=== PATIENT | male | born 1980 | race Hispanic/Latino ===

== ENCOUNTER 2017-03-29 11:07 | Emergency (ER) | payer OTHER ==
[2017-03-29] MEDS ORDERED: ATIVAN IV ONE (11:15)
[2017-03-29] MEDS ORDERED: KEPPRA 1,000 MG/NS 0.75% 100ML 1,000 MG/100 ML BAG IV ONE (11:27)
[2017-03-29] MEDS ORDERED: KEPPRA 1,000 MG in D5W 100 ML IV ONE (11:38)
[2017-03-29] MEDS ORDERED: NACL 0.9% 1000 ML 1,000 ML IV ONE (11:41)
--- NOTE | 2017-03-29 11:49 | Emergency Department Report ---
ED General Adult HPI - General Chief complaint: Seizure Stated complaint: SEIZURE Time Seen by Provider: 03/29/17 11:34 Source: patient, EMS (ems notes not available at time of chart dictation), RN notes reviewed, old records reviewed Mode of arrival: Stretcher Limitations: Altered Mental Status, Other (patient initially altered and postictal, after prolonged period of observation in the emergency department, becomes lucid, and conversational and cogent.) - History of Present Illness Initial comments: This is a 36-year-old male. He is previously unknown to me. Has a past medical history of seizure disorder. Patient indicates he takes Depakote, 500 mg 3 times daily. He indicates that he is poorly compliant with this medication. The patient was brought to the hospital by EMS for seizure. As per triage nurse documentation, patient initially altered, had a seizure while in triage. Patient was given Keppra and Ativan. The patient had unremarkable laboratory studies, negative CT scan of the brain and cervical spine, negative chest x-ray. The patient was observed in the ER for a prolonged period of time. Eventually, the patient became conversational and lucid. He indicates that he is poorly compliant with his antiepileptic drug therapy, but denies severe headache, neck pain, chest pain, abdominal pain , shortness of breath. The patient indicates that he is not driving motor vehicles. He denies toxic drug ingestions. -: unknown Severity scale (0 -10): 0 Consistency: now resolved Improves with: medication Associated Symptoms: confusion (now resolved) - Related Data Previous Rx's Medication Instructions Recorded Last Taken Type Divalproex Dr [Depakote Dr] 500 mg PO TID #90 tablet 08/29/15 Unknown Rx Valproic Acid 500 mg PO TID #180 capsule 03/29/17 Unknown Rx Allergies Allergy/AdvReac Type Severity Reaction Status Date / Time No Known Allergies Allergy Verified 08/29/15 11:16 ED Review of Systems ROS: Stated complaint: SEIZURE Other details as noted in HPI Comment: Unobtainable due to pts medical conditions Constitutional: other (patient initially altered, however afterwards, denies fevers, chills, weakness). denies: fever, malaise, weakness Eyes: denies: vision change ENT: denies: epistaxis Respiratory: denies: cough Cardiovascular: denies: palpitations Gastrointestinal: denies: nausea Genitourinary: as per HPI. denies: dysuria Musculoskeletal: denies: back pain Neurological: headache, confusion (now resolved) Psychiatric: denies: homicidal thoughts, suicidal thoughts ED Past Medical Hx - Past Medical History Previous Medical History?: Yes Hx Hypertension: Yes Hx Seizures: Yes - Surgical History Past Surgical History?: Yes Additional Surgical History: Toe surgery 1994 - Social History Smoking Status: Smoker, Current Status Unknown - Medications Home Medications: Home Medications Medication Instructions Recorded Confirmed Last Taken Type Divalproex Dr [Depakote Dr] 500 mg PO TID #90 tablet 08/29/15 03/29/17 Unknown Rx Valproic Acid 500 mg PO TID #180 capsule 03/29/17 Unknown Rx ED Physical Exam - General Limitations: Altered Mental Status General appearance: alert, in no apparent distress, other (patient initially altered, however after multiple repeat evaluations, is lucid, and conversational ) - Head Head exam: Present: atraumatic, normocephalic - Eye Eye exam: Present: normal appearance, PERRL, EOMI, other (visual acuity intact to finger counting, color perception, reading at a close distance). Absent: nystagmus - ENT ENT exam: Present: normal exam, normal orophraynx, mucous membranes moist, normal external ear exam - Neck Neck exam: Present: normal inspection, full ROM. Absent: tenderness, meningismus - Respiratory Respiratory exam: Present: normal lung sounds bilaterally. Absent: respiratory distress, wheezes, rales, rhonchi, stridor, chest wall tenderness, accessory muscle use, decreased breath sounds, prolonged expiratory - Cardiovascular Cardiovascular Exam: Present: regular rate, normal rhythm, normal heart sounds. Absent: bradycardia, tachycardia, irregular rhythm, systolic murmur, diastolic murmur, rubs, gallop - GI/Abdominal GI/Abdominal exam: Present: soft, normal bowel sounds. Absent: distended, tenderness, guarding, rebound, rigid, pulsatile mass - Rectal Rectal exam: Present: deferred - Extremities Exam Extremities exam: Present: normal inspection, full ROM, normal capillary refill. Absent: pedal edema, joint swelling, calf tenderness - Back Exam Back exam: Present: normal inspection, full ROM. Absent: tenderness, CVA tenderness (R), CVA tenderness (L), muscle spasm, paraspinal tenderness, vertebral tenderness - Neurological Exam Neurological exam: Present: alert, oriented X3, normal gait, other (Extraocular movements intact. Tongue midline. No facial droop. Facial sensation intact to light touch in the V1, V2, V3 distribution bilaterally. 5 and 5 strength in 4 extremities.. Sensation is intact to light touch in 4 extremities.). Absent : motor sensory deficit - Psychiatric Psychiatric exam: Present: normal affect, normal mood. Absent: homicidal ideation, suicidal ideation - Skin Skin exam: Present: warm, dry, intact, normal color. Absent: rash ED Course Vital Signs 03/29/17 03/29/17 03/29/17 11:16 11:26 11:31 Temperature 99.5 F Pulse Rate 112 H 111 H Respiratory 12 18 18 Rate Blood Pressure Blood Pressure 174/101 [Left] O2 Sat by Pulse 94 96 Oximetry 03/29/17 03/29/17 03/29/17 12:01 13:00 13:36 Temperature 98.3 F Pulse Rate 111 H 87 87 Respiratory 18 21 16 Rate Blood Pressure 148/100 144/79 Blood Pressure 142/80 [Left] O2 Sat by Pulse 97 100 100 Oximetry 03/29/17 03/29/17 03/29/17 14:00 15:00 16:00 Temperature Pulse Rate 87 85 86 Respiratory 21 19 20 Rate Blood Pressure 144/78 142/67 132/62 Blood Pressure [Left] O2 Sat by Pulse 94 91 100 Oximetry - Reevaluation(s) Reevaluation #1: 03/29/17 18:30 differential diagnosis: Intracranial injury, cervical spine injury, breakthrough seizure secondary to medication noncompliance, urinary tract infection, toxic encephalopathy, metabolic encephalopathy, prolonged postictal state Assessment and plan: 36-year-old male with postictal state secondary to seizure , secondary to medication noncompliance. Laboratory studies reviewed, unremarkable, somewhat hemoconcentrated, decrease in serum bicarbonate most likely secondary to seizure like activity. Noncontrast CT scan of the brain and cervical spine negative, x-ray of the chest and pelvis negative, patient loaded with antiepileptic drugs, and is now lucid, conversant and within normal limits. Has a GCS of 15, NIH score of 0. Walks with a steady gait. Urinalysis is not consistent with UTI, x-ray of the chest not consistent with pneumonia. The patient had his medications refilled, and he is instructed to remain compliant with his outpatient antiepileptic drug medicines. Return precautions are reviewed. He is instructed not to drive her car, and he is also instructed that noncompliance with AED therapy may result in seizure, which in turn came result in , disability, paralysis, loss of quality of life. The patient verbalizes understanding at this time. ED Medical Decision Making - Lab Data Result diagrams: 03/29/17 11:46 03/29/17 11:46 Vital Signs 03/29/17 03/29/17 03/29/17 11:16 11:26 11:31 Temperature 99.5 F Pulse Rate 112 H 111 H Respiratory 12 18 18 Rate Blood Pressure Blood Pressure 174/101 [Left] O2 Sat by Pulse 94 96 Oximetry 03/29/17 03/29/17 03/29/17 12:01 13:00 13:36 Temperature 98.3 F Pulse Rate 111 H 87 87 Respiratory 18 21 16 Rate Blood Pressure 148/100 144/79 Blood Pressure 142/80 [Left] O2 Sat by Pulse 97 100 100 Oximetry 03/29/17 03/29/17 03/29/17 14:00 15:00 16:00 Temperature Pulse Rate 87 85 86 Respiratory 21 19 20 Rate Blood Pressure 144/78 142/67 132/62 Blood Pressure [Left] O2 Sat by Pulse 94 91 100 Oximetry Lab Results 03/29/17 03/29/17 03/29/17 Range/Units 11:46 11:46 11:46 WBC 10.4 (4.5-11.0) K/mm3 RBC 5.20 H (3.65-5.03) M/mm3 Hgb 16.5 H (11.8-15.2) gm/dl Hct 48.5 H (35.5-45.6) % MCV 93 (84-94) fl MCH 32 (28-32) pg MCHC 34 (32-34) % RDW 13.2 (13.2-15.2) % Plt Count 216 (140-440) K/mm3 Sodium 141 (137-145) mmol/L Potassium 4.0 (3.6-5.0) mmol/L Chloride 96.1 L (98-107) mmol/L Carbon Dioxide 19 L (22-30) mmol/L Anion Gap 30 mmol/L BUN 17 (9-20) mg/dL Creatinine 1.0 (0.8-1.5) mg/dL Estimated GFR > 60 ml/min BUN/Creatinine Ratio 17.00 % Glucose 129 H (75-100) mg/dL POC Glucose (70-105) Calcium 9.4 (8.4-10.2) mg/dL Magnesium 1.90 (1.7-2.3) mg/dL Total Creatine Kinase 260 H (55-170) units/L Urine Color (Yellow) Urine Turbidity (Clear) Urine pH (5.0-7.0) Ur Specific Patrick (1.003-1.030) Urine Protein (Negative) mg/dL Urine Glucose (UA) (Negative) mg/dL Urine Ketones (Negative) mg/dL Urine Blood (Negative) Urine Nitrite (Negative) Urine Bilirubin (Negative) Urine Ictotest Urine Urobilinogen (<2.0) mg/dL Ur Leukocyte Esterase (Negative) Urine WBC (Auto) (0.0-6.0) /HPF Urine RBC (Auto) (0.0-6.0) /HPF U Epithel Cells (Auto) (0-13.0) /HPF Urine Bacteria (Auto) (Negative) /HPF Hyaline Casts /LPF Granular Casts /LPF Urine Mucus /HPF Salicylates < 0.3 L (2.8-20.0) mg/dL Urine Opiates Screen Urine Methadone Screen Acetaminophen (10.0-30.0) ug/mL Ur Barbiturates Screen Valproic Acid 77.1 (50-100) ug/mL Ur Phencyclidine Scrn Ur Amphetamines Screen U Benzodiazepines Scrn Urine Cocaine Screen U Marijuana (THC) Screen Drugs of Abuse Note Plasma/Serum Alcohol (0-0.07) gm% 03/29/17 03/29/17 03/29/17 Range/Units 11:46 11:46 11:53 WBC (4.5-11.0) K/mm3 RBC (3.65-5.03) M/mm3 Hgb (11.8-15.2) gm/dl Hct (35.5-45.6) % MCV (84-94) fl MCH (28-32) pg MCHC (32-34) % RDW (13.2-15.2) % Plt Count (140-440) K/mm3 Sodium (137-145) mmol/L Potassium (3.6-5.0) mmol/L Chloride (98-107) mmol/L Carbon Dioxide (22-30) mmol/L Anion Gap mmol/L BUN (9-20) mg/dL Creatinine (0.8-1.5) mg/dL Estimated GFR ml/min BUN/Creatinine Ratio % Glucose (75-100) mg/dL POC Glucose 105 (70-105) Calcium (8.4-10.2) mg/dL Magnesium (1.7-2.3) mg/dL Total Creatine Kinase (55-170) units/L Urine Color (Yellow) Urine Turbidity (Clear) Urine pH (5.0-7.0) Ur Specific Patrick (1.003-1.030) Urine Protein (Negative) mg/dL Urine Glucose (UA) (Negative) mg/dL Urine Ketones (Negative) mg/dL Urine Blood (Negative) Urine Nitrite (Negative) Urine Bilirubin (Negative) Urine Ictotest Urine Urobilinogen (<2.0) mg/dL Ur Leukocyte Esterase (Negative) Urine WBC (Auto) (0.0-6.0) /HPF Urine RBC (Auto) (0.0-6.0) /HPF U Epithel Cells (Auto) (0-13.0) /HPF Urine Bacteria (Auto) (Negative) /HPF Hyaline Casts /LPF Granular Casts /LPF Urine Mucus /HPF Salicylates (2.8-20.0) mg/dL Urine Opiates Screen Urine Methadone Screen Acetaminophen < 15.0 (10.0-30.0) ug/mL Ur Barbiturates Screen Valproic Acid (50-100) ug/mL Ur Phencyclidine Scrn Ur Amphetamines Screen U Benzodiazepines Scrn Urine Cocaine Screen U Marijuana (THC) Screen Drugs of Abuse Note Plasma/Serum Alcohol < 0.01 (0-0.07) gm% 03/29/17 03/29/17 Range/Units 12:14 12:14 WBC (4.5-11.0) K/mm3 RBC (3.65-5.03) M/mm3 Hgb (11.8-15.2) gm/dl Hct (35.5-45.6) % MCV (84-94) fl MCH (28-32) pg MCHC (32-34) % RDW (13.2-15.2) % Plt Count (140-440) K/mm3 Sodium (137-145) mmol/L Potassium (3.6-5.0) mmol/L Chloride (98-107) mmol/L Carbon Dioxide (22-30) mmol/L Anion Gap mmol/L BUN (9-20) mg/dL Creatinine (0.8-1.5) mg/dL Estimated GFR ml/min BUN/Creatinine Ratio % Glucose (75-100) mg/dL POC Glucose (70-105) Calcium (8.4-10.2) mg/dL Magnesium (1.7-2.3) mg/dL Total Creatine Kinase (55-170) units/L Urine Color Yellow (Yellow) Urine Turbidity Clear (Clear) Urine pH 5.0 (5.0-7.0) Ur Specific Patrick 1.019 (1.003-1.030) Urine Protein 100 mg/dl (Negative) mg/dL Urine Glucose (UA) Neg (Negative) mg/dL Urine Ketones 20 (Negative) mg/dL Urine Blood Sm (Negative) Urine Nitrite Neg (Negative) Urine Bilirubin Neg (Negative) Urine Ictotest Not Reportable Urine Urobilinogen < 2.0 (<2.0) mg/dL Ur Leukocyte Esterase Neg (Negative) Urine WBC (Auto) < 1.0 (0.0-6.0) /HPF Urine RBC (Auto) 1.0 (0.0-6.0) /HPF U Epithel Cells (Auto) < 1.0 (0-13.0) /HPF Urine Bacteria (Auto) 1+ (Negative) /HPF Hyaline Casts 12 /LPF Granular Casts 1 /LPF Urine Mucus Few /HPF Salicylates (2.8-20.0) mg/dL Urine Opiates Screen Presumptive negative Urine Methadone Screen Presumptive negative Acetaminophen (10.0-30.0) ug/mL Ur Barbiturates Screen Presumptive negative Valproic Acid (50-100) ug/mL Ur Phencyclidine Scrn Presumptive negative Ur Amphetamines Screen Presumptive negative U Benzodiazepines Scrn Presumptive negative Urine Cocaine Screen Presumptive negative U Marijuana (THC) Screen Presumptive negative Drugs of Abuse Note Disclamer Plasma/Serum Alcohol (0-0.07) gm% - Radiology Data Radiology results: report reviewed, image reviewed Noncontrast CT scan of the brain and cervical spine negative for acute disease. X-ray the chest negative for acute disease Critical care attestation.: If time is entered above; I have spent that time in minutes in the direct care of this critically ill patient, excluding procedure time. ED Disposition Clinical Impression: Seizure disorder, Medication refill Disposition: DISCHARGED TO HOME OR SELFCARE Is pt being admited?: No Does the pt Need Aspirin: No Condition: Stable Instructions: Recurrent Seizures Adult (ED) Additional Instructions: Do not drive a car or operate motor vehicles unless cleared by a neurologist. Take the medication as directed. Avoid consumption of alcohol. Follow up with any of the listed neurology specialists as soon as possible for further outpatient evaluation and management Not taking any antiepileptic drugs as directed and resultant recurrent seizure, disability, paralysis, permanent loss of quality of life. Please return to the ER right away with fevers or chills, chest pain or shortness of breath, nausea or vomiting, confusion, inability to tolerate liquid feeds, chest pain or shortness of breath. Prescriptions: Valproic Acid 500 mg PO TID #180 capsule Referrals: PRIMARY CARE, [Primary Care Provider] - 3-5 Days ENRICO BRANDT MD [Staff Physician] - 3-5 Days JAMAL EDWARD MD [Staff Physician] - 3-5 Days GILBERT HARRISON MD [Staff Physician] - 3-5 Days ASHLEY RECINOS MD [Staff Physician] - 3-5 Days
[2017-03-29 11:57] LABS: Hematocrit 48.5 % (35.5-45.6); Hemoglobin 16.5 gm/dl (11.8-15.2); Mean Corpuscular HGB Conc 34 % (32-34); Mean Corpuscular Hemoglobin 32 pg (28-32); Mean Corpuscular Volume 93 fl (84-94); Platelet Count 216 K/mm3 (140-440); Red Cell Distribution Width 13.2 % (13.2-15.2); White Blood Count 10.4 K/mm3 (4.5-11.0)
[2017-03-29 12:14] LABS: Urine Drugs of Abuse Note Disclamer
[2017-03-29 12:28] LABS: Anion Gap 30 mmol/L; Blood Urea Nitrogen 17 mg/dL (9-20); Calcium 9.4 mg/dL (8.4-10.2); Carbon Dioxide 19 mmol/L (22-30); Chloride 96.1 mmol/L (98-107); Creatine Kinase 260 units/L (55-170); Glucose 129 mg/dL (75-100); Sodium 141 mmol/L (137-145)
[2017-03-29 12:37] LABS: Bacteria,Urine 1+ /HPF (Negative); Bilirubin,Urine NEG (Negative); Blood,Urine SM (Negative); Granular Casts,Urine 1 /LPF; Ketones,Urine 20 mg/dL (Negative); Leukocyte Esterase,Urine NEG (Negative); Mucus,Urine FEW /HPF; Nitrite,Urine NEG (Negative); Urobilinogen,Urine < 2.0 mg/dL (<2.0); WBC,Urine < 1.0 /HPF (0.0-6.0)
--- NOTE | 2017-03-29 12:52 | Cat Scan Report ---
CT scan of cervical spine: History: Seizure, AMS. Findings: The odontoid process and lateral mass appears intact. The posterior arch of atlas and the occipital condyles appears normal. Normal height of vertebral bodies and intervertebral disc. Normal articular surfaces. No fracture. Normal prevertebral soft tissue. Impression: No evidence of acute fracture .
--- NOTE | 2017-03-29 12:55 | Cat Scan Report ---
CT HEAD WITHOUT CONTRAST INDICATION: Seizure, altered mental status. COMPARISON: 07/30/2016. FINDINGS: Noncontrast head CT demonstrates stable ventricles and sulci, including high biparietal sulcal prominence/enlargement as on axial series 2, images 44-58. No acute or recent infarct, hemorrhage, mass effect or midline shift. No abnormal extra-axial fluid collections. Posterior fossa structures and basilar cisterns appear within normal limits. Slight nasal septal deviation anteriorly. Approximately 3 cm left maxillary sinus mucosal thickening or retention cyst inferiorly again noted. Clear remainder imaged paranasal sinuses and mastoid air cells. Intact calvarium. Normal overlying scalp soft tissues. CONCLUSION: No acute intracranial CT abnormality with left maxillary sinus disease again noted, as described. Thank you for the opportunity to participate in this patient's care.
--- NOTE | 2017-03-29 12:59 | XRay Report ---
Single view chest: History: Seizure, PNA. Findings: Borderline cardiomegaly. Trachea is midline. No consolidation, pneumothorax or pleural effusion. Impression: Cardiomegaly. No acute lung changes.
--- NOTE | 2017-03-29 13:04 | XRay Report ---
Single view pelvis: Fall from trauma. Findings: No lytic or blastic lesion or fracture. No soft tissue calcification. Impression: No evidence of acute fracture.
--- NOTE | 2017-03-29 13:20 | Admit Criteria Form ---
Admission Criteria Documentation: SEIZURE Clinical Indications for Admission to Inpatient Care (Place 'X' for any and all applicable criteria): Admission is indicated for seizure and ANY ONE of the following(1)(2)(3)(4)(5): [X ]I. Inpatient admission required rather than observation care (Also use Seizure: Observation Care Criteria as appropriate) because of ANY ONE of the following: [X ]a) Altered mental status that is severe or persistent [ ]b) New focal neurologic deficit that is severe or persistent [ ]c) Metabolic disorder (eg, hypoglycemia, hyponatremia) that is severe or persistent [ ]d) Recurrent seizure [ ]e) Outpatient antiseizure regimen cannot be established (eg , patient cannot tolerate medication, initiation requires inpatient care) [ ]f) Need for ongoing intravenous infusion of antiseizure medication [ ]g) Cardiac arrhythmias of immediate concern [ ]h) Cerebral bleeding, hydrocephalus, or vasospasm monitoring (14) [ ]i) Increased intracranial pressure or cerebral edema monitoring (15) [ ]j) Other treatment or monitoring requiring inpatient admission [ ]II. Status epilepticus [A] or repetitive seizures not controlled with emergent treatment (6)(8) [ ]III. Brain disorder (eg, tumor, edema, and hydrocephalus) that requiring monitoring or intervention available only at inpatient level of care. [ ]IV. Brain insult (eg, severe trauma, stroke, drug toxicity, or withdrawal) that requires monitoring or intervention available only at inpatient level of care (10)(11) Extended stay beyond goal length of stay may be needed for (22) [ ]a) Complications of status epilepticus [ ]b) Refractory status epilepticus [ ]c) Etiology-specific therapy for conditions such as STUDENT ASSISTANT infection, head injury,eclampsia, severe metabolic abnormalities, and brain tumor [ ]d) Residual neurologic damage, [ ]e) Initiation of significant change to anticonvulsant treatment [ ]f) Older patients (65 years or older) [ ]g) Patient requiring intubation (eg, to protect airway) The original [email or web address] content created by [email or web address] has been revised. The portions of the content which have been revised are identified through the use of italic text or in bold, and [employer] has neither reviewed nor approved the modified material. All other unmodified content is copyright [facility] [employer]. Please see references footnoted in the original [facility] edition 2016
[2017-03-29 15:37] LABS: Valproate 77.1 ug/mL (50-100)
[2017-03-29 15:42] LABS: Salicylate < 0.3 mg/dL (2.8-20.0)
[2017-03-29 16:46] VITALS: BP 132/62
[2017-03-29] MEDS ORDERED: DepaCON 1,000 MG in NACL 0.9% 100 ML IV ONE (17:42)
[2017-03-29] MEDS ORDERED: ATIVAN ONE (18:22)
== END 2017-03-29 19:26 | disposition home or self-care (01) ==
LOC: ED 11:07
DX: G40.909 Epilepsy, unspecified, not intractable, without status epilepticus (principal); I10 Essential (primary) hypertension
CPT/HCPCS: 36415; 70450; 71010; 72125; 72170; 80048; 80164; 80307; 81001; 82550; 82962; 83735; 85027; 96365; 96367; 96375; 99285; G0480; J1953; J2060; J7030; 80320

== ENCOUNTER 2017-05-27 16:08 | Emergency (ER) | payer SELFPAY ==
--- NOTE | 2017-05-27 19:54 | Emergency Department Report ---
ED Recheck HPI - General Chief Complaint: Recheck/Abnormal Lab/Rx Stated Complaint: MED REFILL Time Seen by Provider: 05/27/17 19:26 Source: patient Mode of arrival: Ambulatory Limitations: No Limitations - History of Present Illness Initial Comments: Patient here reports that he needs his seizure medication which is Depakote refilled. He said that he also needs his Norvasc for his high blood pressure refill. Patient said that he usually get his medication refill of the emergency room because he cannot afford to go to a doctor. The pain, no recent seizure in the last year per patient. Denies a headache or visual complaints. Patient is here for refill on medication for Depakote and Norvasc. She says that he's trying to get disability restarted so he can see a neurologist. Denies any fever or chills. Patient states that he's seen a neurologist in the past for seizure but he just cannot afford to see one at present because he has no income. Complaint: medication refill request Initial Visit For: other (location refill) Returns Today for: request for prescription Symptoms Since Prior Visit: no new symptoms Context: ran out of medication Associated Symptoms: none Treatments Prior to Arrival: other medications - Related Data Previous Rx's Medication Instructions Recorded Last Taken Type Divalproex Dr [Depakote Dr] 500 mg PO TID #90 tablet 08/29/15 Unknown Rx Valproic Acid 500 mg PO TID #180 capsule 03/29/[address] [DepaKOTE DR] 500 mg PO TID #90 tab 05/27/17 Unknown Rx amLODIPine [Norvasc] 10 mg PO DAILY #30 tab 05/27/17 Unknown Rx Allergies Allergy/AdvReac Type Severity Reaction Status Date / Time No Known Allergies Allergy Verified 05/27/17 16:46 ED Review of Systems ROS: Stated complaint: MED REFILL Other details as noted in HPI Comment: All other systems reviewed and negative Constitutional: denies: chills, fever Eyes: denies: eye pain, vision change ENT: denies: ear pain, throat pain, congestion Respiratory: no symptoms reported Cardiovascular: denies: chest pain, palpitations, edema, syncope Gastrointestinal: denies: abdominal pain, nausea, vomiting Musculoskeletal: denies: back pain, arthralgia Skin: denies: rash Neurological: denies: headache, numbness, paresthesias, confusion, abnormal gait , vertigo Psychiatric: denies: anxiety ED Past Medical Hx - Past Medical History Previous Medical History?: Yes Hx Hypertension: Yes Hx Seizures: Yes Additional medical history: SPINAL MENINGITIS (CHILD) - Surgical History Past Surgical History?: Yes Additional Surgical History: Toe surgery 1994 - Family History Family history: hypertension - Social History Smoking Status: Current Some Day Smoker Substance Use Type: Alcohol, Cocaine, Marijuana - Medications Home Medications: Home Medications Medication Instructions Recorded Confirmed Last Taken Type Divalproex Dr [Depakote Dr] 500 mg PO TID #90 tablet 08/29/15 03/29/17 Unknown Rx Valproic Acid 500 mg PO TID #180 capsule 03/29/[address] [DepaKOTE DR] 500 mg PO TID #90 tab 05/27/17 Unknown Rx amLODIPine [Norvasc] 10 mg PO DAILY #30 tab 05/27/17 Unknown Rx ED Physical Exam - General Limitations: No Limitations General appearance: alert, in no apparent distress - Head Head exam: Present: atraumatic, normocephalic, normal inspection - Eye Eye exam: Present: normal appearance, PERRL, EOMI. Absent: periorbital swelling , periorbital tenderness Pupils: Present: normal accommodation - ENT ENT exam: Present: normal exam, normal orophraynx, mucous membranes moist - Neck Neck exam: Present: normal inspection, full ROM. Absent: tenderness, meningismus, lymphadenopathy - Respiratory Respiratory exam: Present: normal lung sounds bilaterally. Absent: respiratory distress, chest wall tenderness - Cardiovascular Cardiovascular Exam: Present: regular rate, normal rhythm, normal heart sounds - GI/Abdominal GI/Abdominal exam: Present: soft, normal bowel sounds. Absent: distended, tenderness, guarding, rebound, rigid - Extremities Exam Extremities exam: Present: normal inspection, full ROM, normal capillary refill. Absent: tenderness, pedal edema, joint swelling, calf tenderness - Back Exam Back exam: Present: normal inspection, full ROM. Absent: tenderness, CVA tenderness (R), CVA tenderness (L), muscle spasm, paraspinal tenderness, vertebral tenderness, rash noted - Neurological Exam Neurological exam: Present: alert, oriented X3, normal gait, reflexes normal. Absent: motor sensory deficit - Psychiatric Psychiatric exam: Present: normal affect, normal mood - Skin Skin exam: Present: warm, dry, intact, normal color. Absent: rash ED Course Vital Signs 05/27/17 16:49 Temperature 98.3 F Pulse Rate 77 Respiratory 17 Rate Blood Pressure 125/89 O2 Sat by Pulse 99 Oximetry - Reevaluation(s) Reevaluation #1: 05/27/17 21:52 Patient stable throughout ED stay ED Recheck MDM - Differential Diagnosis Prescription Refill(s) - Medical Decision Making ED course: Patient here reports that he is out of his seizure medication and blood pressure medication and would like to have refill on his Depakote and Norvasc. He denies missing any doses. Patient denies any symptoms or any recent seizure. Blood pressure is controlled Diagnostic and labs: No need for lab for diagnostics. Review of previous visits. Chart reviewed showed the patient had refill on of seizure medication which he had Assessment: encounter for medication refill, she disorder ,high blood pressure Plan follow-up: Patient given refill for Depakote ER 500 mg 3 times a day and Norvasc 10 mg daily 30 day supply. I gave him information on multiple free clinic along with multiple clinics that sees the patient for sliding scale fee. I discussed with patient that he will need to follow-up with primary care physician to manage his chronic medical problems which cannot be managed from emergency room. He voices understanding of discharge instruction and treatment plan and discharged from emergency room in stable condition Critical care attestation.: If time is entered above; I have spent that time in minutes in the direct care of this critically ill patient, excluding procedure time. ED Disposition Clinical Impression: Encounter for medication refill, Seizure disorder, Hypertension, well controlled Disposition: DC-01 TO HOME OR SELFCARE Is pt being admited?: No Does the pt Need Aspirin: No Condition: Stable Instructions: Hypertension (ED), Epilepsy (ED) Additional Instructions: Please follow up with primary care as recommended Please follow up with neurologist as instructed Increase fluid intake Take medication as prescribed . See literature that was given to you on the free clinics in the area. Please call them and schedule an appointment for visit Prescriptions: amLODIPine [Norvasc] 10 mg PO DAILY #[address] [DepaKOTE DR] 500 mg PO TID #90 tab Referrals: [facility] [Outside] - 3-5 Days [facility] [Outside] - 3-5 Days [facility] [Outside] - 3-5 Days [facility] [Outside] - 3-5 Days [facility] [Outside] - 3-5 Days [facility] [Outside] - 3-5 Days [facility] [Outside] - 3-5 Days [facility] [Outside] - 3-5 Days [facility] [Outside] - 3-5 Days [facility] [Outside] - 3-5 Days
[2017-05-27 22:15] VITALS: BP 155/97
== END 2017-05-27 22:14 | disposition home or self-care (01) ==
LOC: ED 16:08
DX: Z76.0 Encounter for issue of repeat prescription (principal); G40.909 Epilepsy, unspecified, not intractable, without status epilepticus; I10 Essential (primary) hypertension; F17.200 Nicotine dependence, unspecified, uncomplicated; F12.10 Cannabis abuse, uncomplicated
CPT/HCPCS: 99282

== ENCOUNTER 2017-09-17 19:56 | Emergency (ER) | payer SELFPAY ==
--- NOTE | 2017-09-17 22:30 | Emergency Department Report ---
ED Seizure HPI - General Chief Complaint: Seizure Stated Complaint: SEIZURE Time Seen by Provider: 09/17/17 22:25 Source: patient, EMS Mode of arrival: Stretcher Limitations: No Limitations - History of Present Illness Initial Comments: 37 YO MALE WITH A H/O SEIZURES HAD A WITNESSED SEIZURE TODAY. HE ADMITS TO TAKING HIS DEPAKOTE THREEE TIMES A DAY BUT WAS NOT SURE IF HE WAS COMPLIANT. PT IS STILL POST-ICTAL WHEN I SAW HIM. MD Complaint: seizure - Related Data Previous Rx's Medication Instructions Recorded Last Taken Type Divalproex Dr [Depakote Dr] 500 mg PO TID #90 tablet 08/29/15 Unknown Rx Valproic Acid 500 mg PO TID #180 capsule 03/29/[address] [DepaKOTE DR] 500 mg PO TID #90 tab 05/27/17 Unknown Rx amLODIPine [Norvasc] 10 mg PO DAILY #30 tab 05/27/17 Unknown Rx Allergies Allergy/AdvReac Type Severity Reaction Status Date / Time No Known Allergies Allergy Verified 05/27/17 16:46 ED Review of Systems ROS: Stated complaint: SEIZURE Other details as noted in HPI ED Past Medical Hx - Past Medical History Previous Medical History?: Yes Hx Hypertension: Yes Hx Seizures: Yes Additional medical history: SPINAL MENINGITIS (CHILD) - Surgical History Past Surgical History?: Yes Additional Surgical History: Toe surgery 1994 - Social History Smoking Status: Never Smoker Substance Use Type: Alcohol - Medications Home Medications: Home Medications Medication Instructions Recorded Confirmed Last Taken Type Divalproex Dr [Depakote Dr] 500 mg PO TID #90 tablet 08/29/15 03/29/17 Unknown Rx Valproic Acid 500 mg PO TID #180 capsule 03/29/[address] [DepaKOTE DR] 500 mg PO TID #90 tab 05/27/17 Unknown Rx amLODIPine [Norvasc] 10 mg PO DAILY #30 tab 05/27/17 Unknown Rx ED Physical Exam - General Limitations: No Limitations ED Course Vital Signs 09/17/17 09/17/17 09/17/17 20:44 21:00 21:30 Temperature 97.6 F Pulse Rate 78 72 70 Respiratory 12 21 16 Rate Blood Pressure 153/88 141/75 154/91 O2 Sat by Pulse 98 98 97 Oximetry 09/17/17 22:00 Temperature Pulse Rate Respiratory Rate Blood Pressure 135/69 O2 Sat by Pulse 97 Oximetry - Reevaluation(s) Reevaluation #1: 09/18/17 03:42 NOP SEIZURES WHILE HERE ED Medical Decision Making - Lab Data Result diagrams: 09/17/17 22:38 09/17/17 22:38 Critical care attestation.: If time is entered above; I have spent that time in minutes in the direct care of this critically ill patient, excluding procedure time. ED Disposition Clinical Impression: Seizure, Seizure disorder Disposition: DC-01 TO HOME OR SELFCARE Is pt being admited?: No Does the pt Need Aspirin: No Condition: Stable Instructions: Recurrent Seizures Adult (ED) Referrals: PRIMARY CARE, [Primary Care Provider] - 3-5 Days Time of Disposition: 03:42
[2017-09-17 22:52] LABS: Basophils % (Auto) 0.6 % (0.0-1.8); Eosinophils % (Auto) 0.4 % (0.0-4.3); Hematocrit 47.6 % (35.5-45.6); Hemoglobin 16.2 gm/dl (11.8-15.2); Mean Corpuscular HGB Conc 34 % (32-34); Mean Corpuscular Hemoglobin 32 pg (28-32); Mean Corpuscular Volume 93 fl (84-94); Platelet Count 242 K/mm3 (140-440); Red Blood Count 5.11 M/mm3 (3.65-5.03); Red Cell Distribution Width 13.9 % (13.2-15.2); White Blood Count 11.1 K/mm3 (4.5-11.0)
[2017-09-17 22:58] LABS: Urine Drugs of Abuse Note Disclamer
[2017-09-17 23:06] LABS: Bilirubin,Urine NEG (Negative); Blood,Urine NEG (Negative); Ketones,Urine TR mg/dL (Negative); Leukocyte Esterase,Urine NEG (Negative); Nitrite,Urine NEG (Negative); Protein,Urine <15 mg/dL mg/dL (Negative); Urobilinogen,Urine < 2.0 mg/dL (<2.0)
[2017-09-17 23:07] LABS: WBC,Urine < 1.0 /HPF (0.0-6.0)
[2017-09-17 23:15] LABS: Creatine Kinase MB 3.7 ng/mL (0.0-4.0)
[2017-09-17 23:16] LABS: Alanine Aminotransferase 16 units/L (7-56); Albumin 4.5 g/dL (3.9-5); Albumin/Globulin Ratio 1.5 %; Alkaline Phosphatase 46 units/L (35-129); Anion Gap 20 mmol/L; BUN/Creatinine Ratio 10; Blood Urea Nitrogen 7 mg/dL (9-20); Calcium 9.6 mg/dL (8.4-10.2); Carbon Dioxide 28 mmol/L (22-30); Creatine Kinase 124 units/L (55-170); Glucose 108 mg/dL (75-100); Potassium 4.9 mmol/L (3.6-5.0); Sodium 140 mmol/L (137-145); Total Protein 7.6 g/dL (6.3-8.2)
[2017-09-18 03:47] VITALS: BP 134/80
== END 2017-09-18 05:04 | disposition home or self-care (01) ==
LOC: ED 19:56
DX: G40.909 Epilepsy, unspecified, not intractable, without status epilepticus (principal); I10 Essential (primary) hypertension
CPT/HCPCS: 36415; 80053; 80164; 80307; 81001; 82550; 82553; 84484; 85025; 99285

== ENCOUNTER 2019-01-04 09:08 | Emergency (ER) | payer OTHER ==
[2019-01-04 09:12] VITALS: BP 174/70
--- NOTE | 2019-01-04 11:12 | Emergency Department Report ---
Chief Complaint: Medical Clearance Stated Complaint: MEDICATION REFILL Time Seen by Provider: 01/04/19 10:38 - HPI History of Present Illness: Patient is a 38-year-old male with history of epilepsy who takes Depakote 500 mg 3 times a day. Patient presented today stating that he is out of his education and we'll not refill. Patient states he has not had a seizure recently. Patient states that he is able to follow up with his psychiatrist due to some insurance purposes. Patient denies any other problems - ROS Review of Systems: All systems reviews and all systems negative - Exam Vital Signs: Vital Signs 01/04/19 09:10 Temperature 97.8 F Pulse Rate 80 Respiratory 16 Rate Blood Pressure 174/70 O2 Sat by Pulse 98 Oximetry Physical Exam: GENERAL: Alert and oriented x3, no apparent distress, Normal Gait, atraumatic. HEAD: Head is normocephalic and a-traumatic. NOSE: Nose symetrical, Nontender,Nares appeared normal. NEUROLOGIC: The patient is cooperative with no focal neurologic deficits. . PSYCHIATRIC: Mood is congruent with affect, denies suicidal or homicidal ideations. SKIN: Warm and dry, No lesions, No ulceration or induration present. MSE screening note: Focused history and physical exam performed. Due to findings the following was ordered: ED Medical Decision Making - Medical Decision Making 38-year-old female with a history of seizure disorder presents with medication refill. Patient is pleasant looking and speaks in clear sentences has no neuro deficit. No recent history of seizure episode Vital signs are normal patient is in no acute distress Discussed to follow up with his psychiatrist referral given for psychiatrist. Patient states soreness and instructions and will follow ED Disposition for MSE Clinical Impression: Medication refill Disposition: DC-01 TO HOME OR SELFCARE Is pt being admited?: No Does the pt Need Aspirin: No Condition: Stable Instructions: Divalproex (By mouth) Additional Instructions: Make sure to follow up with the primary care physician as discussed. Take all your medications as you've been prescribed. If you have any worsening symptoms or develop new symptoms please return to ED immediately. Prescriptions: Divalproex Dr [Depakote Dr] 500 mg PO TID #90 tab Referrals: [facility] [Provider Group] - 3-5 Days Forms: Work/School Release Form(ED) Time of Disposition: 11:13
== END 2019-01-04 11:53 | disposition home or self-care (01) ==
LOC: ED 09:08
DX: R56.9 Unspecified convulsions (principal); Z76.0 Encounter for issue of repeat prescription
CPT/HCPCS: 99282

== ENCOUNTER 2019-01-20 18:28 | Emergency (ER) | payer OTHER ==
[2019-01-20 19:59] LABS: Basophils # (Auto) 0.1 K/mm3 (0.0-0.1); Basophils % (Auto) 0.6 % (0.0-1.8); Eosinophils % (Auto) 0.3 % (0.0-4.3); Lymphocytes # (Auto) 3.4 K/mm3 (1.2-5.4); Lymphocytes % (Auto) 31.2 % (13.4-35.0); Mean Corpuscular HGB Conc 36 % (32-34); Mean Corpuscular Volume 92 fl (84-94); Monocytes # (Auto) 1.1 K/mm3 (0.0-0.8); Monocytes % (Auto) 9.8 % (0.0-7.3); Platelet Count 248 K/mm3 (140-440); Red Blood Count 4.98 M/mm3 (3.65-5.03); Red Cell Distribution Width 13.8 % (13.2-15.2)
[2019-01-20 20:10] LABS: Hematocrit 45.9 % (35.5-45.6); Hemoglobin 16.4 gm/dl (11.8-15.2)
[2019-01-20 20:18] LABS: BUN/Creatinine Ratio 19; Blood Urea Nitrogen 13 mg/dL (9-20); Calcium 9.6 mg/dL (8.4-10.2); Hemolysis Index 13
[2019-01-20] MEDS ORDERED: KEPPRA 1,000 MG/NS 0.75% 100ML 1,000 MG/100 ML BAG IV ONE (20:28)
--- NOTE | 2019-01-20 20:33 | Emergency Department Report ---
ED Seizure HPI - General Chief Complaint: Seizure Stated Complaint: SEIZURE Time Seen by Provider: 01/20/19 20:04 Source: EMS Mode of arrival: Stretcher Limitations: No Limitations - History of Present Illness Initial Comments: Mr. Hinkle is a 38-year-old male with history of epilepsy. He began having seizures since age 4. Today he presents via EMS with seizure and possible syncope versus seizure. He takes Depakote 500 mg 3 times a day. He recalls taking his Depakote much later in the day that he normally has. He admits that he's been drinking alcohol more than normal. Normally has seizures every few months. This morning he remembers having a seizure. This evening, according to roommate report to EMS, he seemed to have passed out and hurt his mouth. there is blood at his lips. patient feels that he likely had a seizure. he has petite mal and grand mal seizures. he states that his seizures are different when he drinks alcohol. he did admit to drinking alcohol today. he denies suicidal or homicidal ideation. no current trauma. Former PCP Dr. Senior. He does not have access to his PCP. His PCP has relocated to another office location. MD Complaint: seizure -: This morning, This evening Description of Episode: loss of consciousness Witnessed:: Yes Trauma: No Seizure History: known seizure disorder Place: home Possible Precipitating Event: none Associated Symptoms: denies other symptoms Treatments Prior to Arrival: none - Related Data Previous Rx's Medication Instructions Recorded Last Taken Type Valproic Acid 500 mg PO TID #180 capsule 03/29/17 Unknown Rx amLODIPine [Norvasc] 10 mg PO DAILY #30 tab 05/27/[address] [Depakote Dr] 500 mg PO TID #90 tab 01/04/[address] [DepaKOTE DR] 500 mg PO TID #90 tab 01/20/19 Unknown Rx Allergies Allergy/AdvReac Type Severity Reaction Status Date / Time No Known Allergies Allergy Verified 01/04/19 09:10 ED Review of Systems ROS: Stated complaint: SEIZURE Other details as noted in HPI Comment: All other systems reviewed and negative Constitutional: denies: fever, malaise Respiratory: denies: cough Cardiovascular: denies: chest pain ED Past Medical Hx - Past Medical History Previous Medical History?: Yes Hx Hypertension: Yes Hx Seizures: Yes Additional medical history: SPINAL MENINGITIS (CHILD) - Surgical History Additional Surgical History: Toe surgery 1994 - Social History Smoking Status: Former Smoker Substance Use Type: Alcohol, Marijuana - Medications Home Medications: Home Medications Medication Instructions Recorded Confirmed Last Taken Type Valproic Acid 500 mg PO TID #180 capsule 03/29/17 Unknown Rx amLODIPine [Norvasc] 10 mg PO DAILY #30 tab 05/27/[address] [Depakote Dr] 500 mg PO TID #90 tab 01/04/[address] [DepaKOTE DR] 500 mg PO TID #90 tab 01/20/19 Unknown Rx ED Physical Exam - General Limitations: No Limitations General appearance: alert, in no apparent distress - Head Head exam: Present: atraumatic, normocephalic - Eye Eye exam: Present: normal appearance, PERRL. Absent: conjunctival injection - ENT ENT exam: Present: mucous membranes moist - Neck Neck exam: Present: normal inspection, full ROM. Absent: tenderness, men ingismus - Respiratory Respiratory exam: Present: normal lung sounds bilaterally. Absent: respiratory distress, wheezes, rhonchi - Cardiovascular Cardiovascular Exam: Present: regular rate, normal rhythm, normal heart sounds. Absent: systolic murmur, diastolic murmur, rubs, gallop - GI/Abdominal GI/Abdominal exam: Present: soft, normal bowel sounds. Absent: distended, tenderness, guarding, rebound - Rectal Rectal exam: Present: deferred - Extremities Exam Extremities exam: Present: normal inspection - Back Exam Back exam: Present: normal inspection - Neurological Exam Neurological exam: Present: alert, oriented X3 - Psychiatric Psychiatric exam: Present: normal affect, normal mood - Skin Skin exam: Present: warm, dry, intact, normal color. Absent: rash ED Course Vital Signs 01/20/19 01/20/19 01/20/19 19:28 19:29 19:31 Temperature Pulse Rate Respiratory 18 Rate Blood Pressure 150/103 Blood Pressure [Left] O2 Sat by Pulse 97 97 97 Oximetry 01/20/19 01/20/19 01/20/19 19:44 19:45 19:49 Temperature 97.4 F L 97.8 F Pulse Rate 68 75 67 Respiratory 15 16 14 Rate Blood Pressure 157/100 157/100 Blood Pressure 157/100 [Left] O2 Sat by Pulse 97 94 97 Oximetry 01/20/19 01/20/19 01/20/19 20:00 20:15 20:31 Temperature Pulse Rate 69 61 57 L Respiratory 14 10 L 19 Rate Blood Pressure 164/93 164/93 143/83 Blood Pressure [Left] O2 Sat by Pulse 94 97 90 Oximetry 01/20/19 01/20/19 01/20/19 20:45 21:00 21:15 Temperature Pulse Rate 59 L 68 74 Respiratory 14 18 24 Rate Blood Pressure 143/83 156/85 143/83 Blood Pressure [Left] O2 Sat by Pulse 94 96 94 Oximetry 01/20/19 01/20/19 01/20/19 21:30 21:45 22:00 Temperature Pulse Rate 74 79 86 Respiratory 15 15 13 Rate Blood Pressure 156/85 156/85 162/90 Blood Pressure [Left] O2 Sat by Pulse 99 100 100 Oximetry 01/20/19 22:15 Temperature Pulse Rate 76 Respiratory 16 Rate Blood Pressure 169/91 Blood Pressure [Left] O2 Sat by Pulse 97 Oximetry ED Medical Decision Making - Lab Data Result diagrams: 01/20/19 19:47 01/20/19 21:45 Laboratory Results - last 24 hr 01/20/19 01/20/19 01/20/19 19:47 19:47 19:47 WBC 10.9 RBC 4.98 Hgb 16.4 H Hct 45.9 H MCV 92 MCH 33 H MCHC 36 H RDW 13.8 Plt Count 248 Lymph % (Auto) 31.2 [place] % (Auto) 9.8 H Eos % (Auto) 0.3 Baso % (Auto) 0.6 Lymph # 3.4 [place] # 1.1 H Eos # 0.0 Baso # 0.1 Seg Neutrophils % 58.1 Seg Neutrophils # 6.3 Sodium 138 Potassium 4.4 Chloride 97.4 L Carbon Dioxide 27 Anion Gap 18 BUN 13 Creatinine 0.7 L Estimated GFR > 60 BUN/Creatinine Ratio 19 Glucose 123 H Calcium 9.6 Magnesium 1.70 Valproic Acid 55.7 - Medical Decision Making Mr. Hinkle presents with seizure 2 today. His Depakote level is therapeutic. He was awake upon arrival. He received Keppra load in the ED. Suspect alcohol ingestion has lowered his seizure threshold. I did provide 30 day prescription for Depakote. I reviewed labs obtained. CBC chemistry was normal limits. Mr. Hinkle observed in ED for 4 hours. He is awake alert. No recurrent seizure activity. Critical care attestation.: If time is entered above; I have spent that time in minutes in the direct care of this critically ill patient, excluding procedure time. ED Disposition Clinical Impression: Seizure disorder, Medication refill, Breakthrough seizure Disposition: DC-01 TO HOME OR SELFCARE Is pt being admited?: No Does the pt Need Aspirin: No Condition: Stable Instructions: Epilepsy (ED) Prescriptions: Divalproex [Rebeca TRAN] 500 mg PO TID #90 tab Referrals: [facility] [Outside] - 3-5 Days Forms: Work/School Release Form(ED)
[2019-01-20 22:06] LABS: BUN/Creatinine Ratio 21; Blood Urea Nitrogen 15 mg/dL (9-20); Calcium 9.6 mg/dL (8.4-10.2); Hemolysis Index 49
[2019-01-20 22:22] VITALS: BP 169/91
== END 2019-01-20 23:34 | disposition home or self-care (01) ==
LOC: ED 18:28
DX: G40.919 Epilepsy, unspecified, intractable, without status epilepticus (principal); I10 Essential (primary) hypertension; F12.10 Cannabis abuse, uncomplicated; Z76.0 Encounter for issue of repeat prescription; Z87.891 Personal history of nicotine dependence
CPT/HCPCS: 36415; 80048; 80164; 83735; 85025; 96374; 99284; G0480; J1953; 80320

== ENCOUNTER 2019-03-09 12:21 | Emergency (ER) | payer OTHER ==
[2019-03-09 12:52] VITALS: BP 121/86
--- NOTE | 2019-03-09 12:56 | Emergency Department Report ---
Chief Complaint: Recheck/Abnormal Lab/Rx Stated Complaint: MEDICATION REFILL FOR SEIZURES Time Seen by Provider: 03/09/19 12:51 - HPI History of Present Illness: Patient comes in for refill on his depakote ER 500 mg. Verfied by [facility] [phone]. Last was seen here January [address] Noelle Moe. - Exam Vital Signs: Vital Signs 03/09/19 12:46 Temperature 98 F Pulse Rate 75 Respiratory 14 Rate Blood Pressure 121/86 [Left] O2 Sat by Pulse 97 Oximetry MSE screening note: Focused history and physical exam performed. Due to findings the following was ordered: ED Disposition for MSE Clinical Impression: Medication refill Disposition: DC- TO HOME OR SELFCARE Is pt being admited?: No Does the pt Need Aspirin: No Condition: Stable Additional Instructions: Follow up with a primary Care provider. Prescriptions: Divalproex Dr [Depakote Dr] 500 mg PO TID #90 tab Referrals: [facility] [Provider Group] - 3-5 Days
== END 2019-03-09 12:56 | disposition home or self-care (01) ==
LOC: ED 12:21
DX: F31.9 Bipolar disorder, unspecified (principal); Z76.0 Encounter for issue of repeat prescription
CPT/HCPCS: 99282

== ENCOUNTER 2019-04-06 12:22 | Emergency (ER) | payer OTHER ==
[2019-04-06 12:35] VITALS: BP 148/91
--- NOTE | 2019-04-06 12:35 | Emergency Department Report ---
ED Recheck HPI - General Chief Complaint: Recheck/Abnormal Lab/Rx Stated Complaint: MEDICATION Time Seen by Provider: 04/06/19 12:29 Source: patient Mode of arrival: Ambulatory Limitations: No Limitations - History of Present Illness Initial Comments: This is a 38-year-old male nontoxic well in appearance with no signs of distress presents to the ED for seizure medication refill. Patient denies any seizure activity. Stated has PCP follow up later next month. Patient denies any symptoms. Denies any fever, chills, headache, nausea, vomiting, chest pain or SOB. Denies any other complaints. Patient denies any allergies. MD Complaint: medication refill request Returns Today for: request for prescription Symptoms Since Prior Visit: no new symptoms Associated Symptoms: none. denies: fever, chills, chest pain, shortness of breath, rash, malaise, nasuea, abdominal pain - Related Data Previous Rx's Medication Instructions Recorded Last Taken Type Valproic Acid 500 mg PO TID #180 capsule 03/29/17 Unknown Rx amLODIPine [Norvasc] 10 mg PO DAILY #30 tab 05/27/[address] [Kelby Perez] 500 mg PO TID #90 tab 01/04/[address] [Kelby Perez] 500 mg PO TID #90 tab 03/09/[address] [Kelby PEREZ] 500 mg PO TID #90 tab 04/06/19 Unknown Rx Allergies Allergy/AdvReac Type Severity Reaction Status Date / Time No Known Allergies Allergy Verified 04/06/19 12:23 ED Review of Systems ROS: Stated complaint: MEDICATION Other details as noted in HPI Constitutional: denies: chills, fever Eyes: denies: eye pain, eye discharge, vision change ENT: denies: ear pain, throat pain Respiratory: denies: cough, shortness of breath, wheezing Cardiovascular: denies: chest pain, palpitations Endocrine: no symptoms reported Gastrointestinal: denies: abdominal pain, nausea, diarrhea Genitourinary: denies: urgency, dysuria Musculoskeletal: denies: back pain, joint swelling, arthralgia Skin: denies: rash, lesions Neurological: denies: headache, weakness, paresthesias Psychiatric: denies: anxiety, depression Hematological/Lymphatic: denies: easy bleeding, easy bruising ED Past Medical Hx - Past Medical History Hx Hypertension: Yes Hx Seizures: Yes Additional medical history: SPINAL MENINGITIS (CHILD) - Surgical History Additional Surgical History: Toe surgery 1994 - Social History Smoking Status: Never Smoker Substance Use Type: None - Medications Home Medications: Home Medications Medication Instructions Recorded Confirmed Last Taken Type Valproic Acid 500 mg PO TID #180 capsule 03/29/17 Unknown Rx amLODIPine [Norvasc] 10 mg PO DAILY #30 tab 05/27/[address] [Depakote Dr] 500 mg PO TID #90 tab 01/04/[address] [Depakote Dr] 500 mg PO TID #90 tab 03/09/[address] [DepaKOTE DR] 500 mg PO TID #90 tab 04/06/19 Unknown Rx ED Physical Exam - General Limitations: No Limitations General appearance: alert, in no apparent distress - Head Head exam: Present: atraumatic, normocephalic - Eye Eye exam: Present: normal appearance - Neck Neck exam: Present: normal inspection, full ROM - Extremities Exam Extremities exam: Present: normal inspection, full ROM - Back Exam Back exam: Present: normal inspection, full ROM - Neurological Exam Neurological exam: Present: alert, oriented X3, normal gait - Psychiatric Psychiatric exam: Present: normal affect, normal mood - Skin Skin exam: Present: warm, dry, intact, normal color. Absent: rash ED Course - Reevaluation(s) Reevaluation #1: 04/06/19 12:31 Patient is speaking in full sentences with no signs of distress noted. ED Recheck MDM - Medical Decision Making Patient was instructed to Follow-up with a primary care doctor in 3-5 days or if symptoms worsen and continue return to emergency room as soon as possible. At time of discharge, the patient does not seem toxic or ill in appearance. No acute signs of distress noted. Patient agrees to discharge treatment plan of care. No further questions noted by the patient. Critical care attestation.: If time is entered above; I have spent that time in minutes in the direct care of this critically ill patient, excluding procedure time. ED Disposition Clinical Impression: Medication refill Disposition: - TO HOME OR SELFCARE Is pt being admited?: No Does the pt Need Aspirin: No Condition: Stable Instructions: Divalproex (By mouth), Epilepsy (ED) Additional Instructions: Follow-up with a primary care doctor in 3-5 days or if symptoms worsen and continue return to emergency room as soon as possible. Prescriptions: Divalproex [DepaKOTE ] 500 mg PO TID #90 tab Referrals: PRIMARY CARE, [Referring] - 3-5 Days SAQIB UGARTE MD [Staff Physician] - 3-[address] [facility] [Outside] - 3-5 Days [facility] [Outside] - 3-5 Days
== END 2019-04-06 13:00 | disposition home or self-care (01) ==
LOC: ED 12:22
DX: R56.9 Unspecified convulsions (principal); Z76.0 Encounter for issue of repeat prescription
CPT/HCPCS: 99282

== ENCOUNTER 2019-06-09 09:35 | Emergency (ER) | payer OTHER ==
--- NOTE | 2019-06-09 10:27 | Emergency Department Report ---
ED General Adult HPI - General Chief complaint: Weakness Stated complaint: WEAKNESS/SEIZURE Time Seen by Provider: 06/09/19 10:08 Source: patient, EMS (ems notes not available at time of chart dictation), RN notes reviewed, old records reviewed Mode of arrival: Stretcher Limitations: No Limitations - History of Present Illness Initial comments: This is a 38-year-old gentleman. I have evaluated this patient in the past. He has a past medical history of reported seizure disorder, and takes valproic acid. He presents to the ER today with a request to "get checked out." He wants to see what his Depakote levels are. He does not feel weak. He has not had a seizure. He describes nonspecific racing thoughts. He denies physical pain. He indicates that he is thirsty. He indicates no headache, neck pain, chest pain, abdominal pain or shortness of breath. The indicates nonspecific muscular discomfort diffusely. He denies urinary symptoms. He endorses compliance with his medications. -: Sudden Consistency: constant Improves with: none Worsens with: none Associated Symptoms: denies other symptoms - Related Data Previous Rx's Medication Instructions Recorded Last Taken Type Valproic Acid 500 mg PO TID #180 capsule 03/29/17 Unknown Rx amLODIPine [Norvasc] 10 mg PO DAILY #30 tab 05/27/[address] [Rebeca Perez] 500 mg PO TID #90 tab 01/04/19 Unknown Rx Divalproex [Rebeca PEREZ] 500 mg PO TID #90 tab 04/06/[address] [Rebeca Perez] 500 mg PO TID #90 tab 06/09/19 Unknown Rx Allergies Allergy/AdvReac Type Severity Reaction Status Date / Time No Known Allergies Allergy Verified 04/06/19 12:23 ED Review of Systems ROS: Stated complaint: WEAKNESS/SEIZURE Other details as noted in HPI Comment: All other systems reviewed and negative Musculoskeletal: myalgia Neurological: denies: headache, weakness, numbness, paresthesias, confusion, abnormal gait, vertigo Psychiatric: denies: homicidal thoughts, suicidal thoughts ED Past Medical Hx - Past Medical History Hx Hypertension: Yes Hx Seizures: Yes Additional medical history: SPINAL MENINGITIS (CHILD) - Surgical History Additional Surgical History: Toe surgery 1994 - Social History Smoking Status: Current Some Day Smoker Substance Use Type: Cocaine, Marijuana - Medications Home Medications: Home Medications Medication Instructions Recorded Confirmed Last Taken Type Valproic Acid 500 mg PO TID #180 capsule 03/29/17 Unknown Rx amLODIPine [Norvasc] 10 mg PO DAILY #30 tab 05/27/[address] [Depakote Dr] 500 mg PO TID #90 tab 01/04/[address] [DepaKOTE DR] 500 mg PO TID #90 tab 04/06/[address] [Depakote Dr] 500 mg PO TID #90 tab 06/09/19 Unknown Rx ED Physical Exam - General Limitations: No Limitations General appearance: alert, in no apparent distress - Head Head exam: Present: atraumatic, normocephalic - Eye Eye exam: Present: normal appearance, EOMI. Absent: nystagmus - ENT ENT exam: Present: normal exam, normal orophraynx, mucous membranes moist, normal external ear exam - Neck Neck exam: Present: normal inspection, full ROM. Absent: tenderness, meningismus - Respiratory Respiratory exam: Present: normal lung sounds bilaterally. Absent: respiratory distress - Cardiovascular Cardiovascular Exam: Present: regular rate, normal rhythm, normal heart sounds. Absent: bradycardia, tachycardia, irregular rhythm, systolic murmur, diastolic murmur, rubs, gallop - GI/Abdominal GI/Abdominal exam: Present: soft. Absent: distended, tenderness, guarding, rebound, rigid, pulsatile mass - Rectal Rectal exam: Present: deferred - Extremities Exam Extremities exam: Present: normal inspection, full ROM, other (2+ pulses noted in the bilateral upper, lower extremities. Compartments soft. No long bony tenderness. The pelvis is stable.). Absent: pedal edema, joint swelling, calf tenderness - Back Exam Back exam: Present: normal inspection, full ROM. Absent: tenderness, CVA tenderness (R), CVA tenderness (L), paraspinal tenderness, vertebral tenderness - Neurological Exam Neurological exam: Present: alert, oriented X3, normal gait, other (Extraocular movements intact. Tongue midline. No facial droop. Facial sensation intact to light touch in the V1, V2, V3 distribution bilaterally. 5 and 5 strength in 4 extremities.. Sensation is intact to light touch in 4 extremities.). Absent: motor sensory deficit - Psychiatric Psychiatric exam: Present: flat affect - Skin Skin exam: Present: warm, dry, intact, normal color. Absent: rash ED Course Vital Signs 06/09/19 10:01 Temperature 98.7 F Pulse Rate 73 Respiratory 18 Rate Blood Pressure 143/80 O2 Sat by Pulse 98 Oximetry ED Medical Decision Making - Lab Data Result diagrams: 06/09/19 10:33 Vital Signs 06/09/19 10:01 Temperature 98.7 F Pulse Rate 73 Respiratory 18 Rate Blood Pressure 143/80 O2 Sat by Pulse 98 Oximetry Lab Results 06/09/19 06/09/19 06/09/19 Range/Units 10:33 10:33 10:33 Sodium 142 (137-145) mmol/L Potassium 4.2 (3.6-5.0) mmol/L Chloride 102.7 (98-107) mmol/L Carbon Dioxide 26 (22-30) mmol/L Anion Gap 18 mmol/L BUN 7 L (9-20) mg/dL Creatinine 0.6 L (0.8-1.5) mg/dL Estimated GFR > 60 ml/min BUN/Creatinine Ratio 12 % Glucose 91 (75-100) mg/dL Calcium 9.2 (8.4-10.2) mg/dL Total Bilirubin 0.30 (0.1-1.2) mg/dL AST 19 (5-40) units/L ALT 23 (7-56) units/L Alkaline Phosphatase 46 (35-129) units/L Total Creatine Kinase 98 (55-170) units/L Total Protein 7.1 (6.3-8.2) g/dL Albumin 4.4 (3.9-5) g/dL Albumin/Globulin Ratio 1.6 % Salicylates < 0.3 L (2.8-20.0) mg/dL Acetaminophen < 5.0 L (10.0-30.0) ug/mL Valproic Acid 93.7 (50-100) ug/mL - Medical Decision Making Differential diagnosis, including the not limited to: Encounter FOR verification of therapeutic valproic acid level, history of chronic seizure, general medical evaluation Assessment and plan: 38-year-old gentleman who requested to get "checked out", felt to have an unremarkable neurologic examination, unremarkable physical examination, and unremarkable laboratory studies. Patient given ice water without difficulty. He is walking around the ER without acute distress or difficulty. The patient does not appear to have an acutely emergent medical condition at this time. The patient may be discharged with instructions to follow up with his outpatient primary care doctor and/or neurologist. Critical care attestation.: If time is entered above; I have spent that time in minutes in the direct care of this critically ill patient, excluding procedure time. ED Disposition Clinical Impression: Therapeutic drug monitoring, General medical examination Disposition: DC-01 TO HOME OR SELFCARE Is pt being admited?: No Does the pt Need Aspirin: No Condition: Stable Additional Instructions: Continue current outpatient medications. If the patient has had a seizure within the past 6 months, he should not drive or operate motor vehicles until cleared by either her primary care doctor or neurology specialist. Follow-up with the primary care doctor or neurology specialist within the next 4-6 weeks. Avoid consumption of alcohol and tobacco, and other inhalants. Return to the emergency room right away with new, worsening or different symptoms, or symptoms not present on the initial emergency room evaluation. [facility] FERCHO [Primary Care Provider] - as needed RICHARD DICK MD [Referring] - as needed JAMAL EDWARD MD [Staff Physician] - as needed ENRICO BRANDT MD [Staff Physician] - as needed [facility] [Provider Group] - as needed
[2019-06-09 11:07] LABS: Alanine Aminotransferase 23 units/L (7-56); Albumin 4.4 g/dL (3.9-5); BUN/Creatinine Ratio 12; Blood Urea Nitrogen 7 mg/dL (9-20); Calcium 9.2 mg/dL (8.4-10.2); Hemolysis Index 7
[2019-06-09 12:38] VITALS: BP 128/67
== END 2019-06-09 12:30 | disposition home or self-care (01) ==
LOC: ED 09:35
DX: R53.1 Weakness (principal); I10 Essential (primary) hypertension; G40.909 Epilepsy, unspecified, not intractable, without status epilepticus; F17.200 Nicotine dependence, unspecified, uncomplicated; F12.10 Cannabis abuse, uncomplicated; Z98.890 Other specified postprocedural states; Z79.899 Other long term (current) drug therapy
CPT/HCPCS: 36415; 80053; 80164; 80320; 82550; G0480

== ENCOUNTER 2019-08-15 12:59 | Emergency (ER) | payer SELFPAY ==
--- NOTE | 2019-08-15 13:33 | Event Note ---
ED Screening Note Date of service: 08/15/19 Time: 13:31 ED Screening Note: 38 y o male presents with hearing a voice over and over and states he had a seizure and hit his head unsure where poor historian needs refill on depakote This initial assessment/diagnostic orders/clinical plan/treatment(s) is/are subject to change based on patients health status, clinical progression and re- assessment by fellow clinical providers in the ED. Further treatment and workup at subsequent clinical providers discretion. Patient/guardian urged not to elope from the ED as their condition may be serious if not clinically assessed and managed. Initial orders include: main side eval psyh eval
[2019-08-15 13:59] LABS: Basophils % (Auto) 0.4 % (0.0-1.8); Eosinophils # (Auto) 0.1 K/mm3 (0.0-0.4); Eosinophils % (Auto) 1.4 % (0.0-4.3); Hematocrit 43.7 % (35.5-45.6); Hemoglobin 14.9 gm/dl (11.8-15.2); Lymphocytes % (Auto) 43.5 % (13.4-35.0); Mean Corpuscular HGB Conc 34 % (32-34); Mean Corpuscular Volume 94 fl (84-94); Monocytes # (Auto) 0.7 K/mm3 (0.0-0.8); Monocytes % (Auto) 9.5 % (0.0-7.3); Platelet Count 215 K/mm3 (140-440); Red Blood Count 4.67 M/mm3 (3.65-5.03)
[2019-08-15 14:23] LABS: BUN/Creatinine Ratio 25; Blood Urea Nitrogen 15 mg/dL (9-20); Calcium 9.4 mg/dL (8.4-10.2); Hemolysis Index 6
[2019-08-15 14:35] LABS: Bacteria,Urine 1+ /HPF (Negative); Bilirubin,Urine NEG (Negative); Blood,Urine SM (Negative); Mucus,Urine 2+ /HPF
[2019-08-15 14:39] LABS: Color,Urine Yellow (Yellow)
[2019-08-15 14:41] LABS: Amphetamine Screen,Urine PRESUMPTIVE NEGATIVE; Benzodiazepines Screen,Urine PRESUMPTIVE NEGATIVE; Cannabinoid Screen,Urine PRESUMPTIVE NEGATIVE; Cocaine Screen,Urine PRESUMPTIVE NEGATIVE; Methadone Screen,Urine PRESUMPTIVE NEGATIVE; Opiate Screen,Urine PRESUMPTIVE NEGATIVE
--- NOTE | 2019-08-15 15:57 | Emergency Department Report ---
ED General Adult HPI - General Chief complaint: Psych Stated complaint: MED REFILL/SEIZURE Time Seen by Provider: 08/15/19 13:31 Source: patient Mode of arrival: Ambulatory Limitations: No Limitations - History of Present Illness Initial comments: Patient presents to the emergency department with a chief complaint of multiple seizures since Wednesday morning. The patient states that one of her seizures resulted in him striking his head. Patient complains of confusion since that time that he describes as mental sluggishness. Patient also complains of a mild headache since the injury. Patient endorses some doses of his Depakote over the last week or so. -: Sudden Location: head Severity scale (0 -10): 1 Quality: aching Consistency: constant Improves with: none Worsens with: none Associated Symptoms: denies other symptoms Treatments Prior to Arrival: none - Related Data Previous Rx's Medication Instructions Recorded Last Taken Type Valproic Acid 500 mg PO TID #180 capsule 03/29/17 08/14/19 Rx amLODIPine [Norvasc] 10 mg PO DAILY #30 tab 05/27/17 08/15/[address] [Depakote Dr] 500 mg PO TID #90 tab 06/09/19 08/14/19 Rx Allergies Allergy/AdvReac Type Severity Reaction Status Date / Time No Known Allergies Allergy Verified 08/15/19 13:28 ED Review of Systems ROS: Stated complaint: MED REFILL/SEIZURE Other details as noted in HPI Comment: All other systems reviewed and negative Constitutional: denies: chills, fever Eyes: denies: eye pain, eye discharge, vision change ENT: denies: ear pain, throat pain Respiratory: denies: cough, shortness of breath, wheezing Cardiovascular: denies: chest pain, palpitations Endocrine: no symptoms reported Gastrointestinal: denies: abdominal pain, nausea, diarrhea Genitourinary: denies: urgency, dysuria Musculoskeletal: denies: back pain, joint swelling, arthralgia Skin: denies: rash, lesions Neurological: headache. denies: weakness, paresthesias Psychiatric: denies: anxiety, depression Hematological/Lymphatic: denies: easy bleeding, easy bruising ED Past Medical Hx - Past Medical History Previous Medical History?: Yes Hx Hypertension: Yes Hx Seizures: Yes Additional medical history: SPINAL MENINGITIS (CHILD) - Surgical History Past Surgical History?: Yes Additional Surgical History: Toe surgery 1994 - Social History Smoking Status: Current Some Day Smoker Substance Use Type: Alcohol, Cocaine - Medications Home Medications: Home Medications Medication Instructions Recorded Confirmed Last Taken Type Valproic Acid 500 mg PO TID #180 capsule 03/29/17 08/15/19 08/14/19 Rx amLODIPine [Norvasc] 10 mg PO DAILY #30 tab 05/27/17 08/15/19 08/15/[address] [Depakote Dr] 500 mg PO TID #90 tab 06/09/19 08/15/19 08/14/19 Rx ED Physical Exam - General Limitations: No Limitations General appearance: alert, in no apparent distress - Head Head exam: Present: atraumatic, normocephalic - Eye Eye exam: Present: normal appearance, PERRL, EOMI - ENT ENT exam: Present: mucous membranes moist - Neck Neck exam: Present: normal inspection - Respiratory Respiratory exam: Present: normal lung sounds bilaterally. Absent: respiratory distress - Cardiovascular Cardiovascular Exam: Present: regular rate, normal rhythm. Absent: systolic murmur, diastolic murmur, rubs, gallop - GI/Abdominal GI/Abdominal exam: Present: soft, normal bowel sounds. Absent: distended, tenderness - Rectal Rectal exam: Present: deferred - Extremities Exam Extremities exam: Present: normal inspection - Back Exam Back exam: Present: normal inspection - Neurological Exam Neurological exam: Present: alert, oriented X3, CN II-XII intact. Absent: motor sensory deficit - Psychiatric Psychiatric exam: Present: normal affect, normal mood - Skin Skin exam: Present: warm, dry, intact, normal color, other (linear abrasions to the posterior aspects of the right antebrachium). Absent: rash ED Course Vital Signs 08/15/19 08/15/19 08/15/19 13:26 14:17 14:24 Temperature 98.1 F Pulse Rate 75 Respiratory 20 20 Rate Blood Pressure Blood Pressure 156/109 [Right] O2 Sat by Pulse 97 81 L 99 Oximetry 08/15/19 08/15/19 08/15/19 14:30 14:45 15:00 Temperature Pulse Rate 51 L 57 L 59 L Respiratory 12 18 12 Rate Blood Pressure 141/72 151/76 151/76 Blood Pressure [Right] O2 Sat by Pulse 98 99 99 Oximetry 08/15/19 08/15/19 15:16 15:30 Temperature Pulse Rate 53 L 66 Respiratory 22 16 Rate Blood Pressure 118/60 118/60 Blood Pressure [Right] O2 Sat by Pulse Oximetry ED Medical Decision Making - Lab Data Result diagrams: 08/15/19 13:42 08/15/19 13:42 Lab Results 08/15/19 08/15/19 08/15/19 Range/Units 13:42 13:42 13:42 WBC (4.5-11.0) K/mm3 RBC (3.65-5.03) M/mm3 Hgb (11.8-15.2) gm/dl Hct (35.5-45.6) % MCV (84-94) fl MCH (28-32) pg MCHC (32-34) % RDW (13.2-15.2) % Plt Count (140-440) K/mm3 Lymph % (Auto) (13.4-35.0) % Orange % (Auto) (0.0-7.3) % Eos % (Auto) (0.0-4.3) % Baso % (Auto) (0.0-1.8) % Lymph # (1.2-5.4) K/mm3 Orange # (0.0-0.8) K/mm3 Eos # (0.0-0.4) K/mm3 Baso # (0.0-0.1) K/mm3 Seg Neutrophils % (40.0-70.0) % Seg Neutrophils # (1.8-7.7) K/mm3 Sodium (137-145) mmol/L Potassium (3.6-5.0) mmol/L Chloride (98-107) mmol/L Carbon Dioxide (22-30) mmol/L Anion Gap mmol/L BUN (9-20) mg/dL Creatinine (0.8-1.5) mg/dL Estimated GFR ml/min BUN/Creatinine Ratio % Glucose (75-100) mg/dL Calcium (8.4-10.2) mg/dL Urine Color Yellow (Yellow) Urine Turbidity Clear (Clear) Urine pH 5.0 (5.0-7.0) Ur Specific [place] 1.028 (1.003-1.030) Urine Protein 30 mg/dl (Negative) mg/dL Urine Glucose (UA) Neg (Negative) mg/dL Urine Ketones Tr (Negative) mg/dL Urine Blood Sm (Negative) Urine Nitrite Neg (Negative) Urine Bilirubin Neg (Negative) Urine Urobilinogen 4.0 (<2.0) mg/dL Ur Leukocyte Esterase Neg (Negative) Urine WBC (Auto) 1.0 (0.0-6.0) /HPF Urine RBC (Auto) 3.0 (0.0-6.0) /HPF Urine Bacteria (Auto) 1+ (Negative) /HPF Urine Mucus 2+ /HPF Salicylates < 0.3 L (2.8-20.0) mg/dL Urine Opiates Screen Presumptive negative Urine Methadone Screen Presumptive negative Acetaminophen (10.0-30.0) ug/mL Ur Barbiturates Screen Presumptive negative Valproic Acid (50-100) ug/mL Ur Phencyclidine Scrn Presumptive negative Ur Amphetamines Screen Presumptive negative U Benzodiazepines Scrn Presumptive negative Urine Cocaine Screen Presumptive negative U Marijuana (THC) Screen Presumptive negative Drugs of Abuse Note Disclamer Plasma/Serum Alcohol (0-0.07) % 08/15/19 08/15/19 08/15/19 Range/Units 13:42 13:42 13:42 WBC (4.5-11.0) K/mm3 RBC (3.65-5.03) M/mm3 Hgb (11.8-15.2) gm/dl Hct (35.5-45.6) % MCV (84-94) fl MCH (28-32) pg MCHC (32-34) % RDW (13.2-15.2) % Plt Count (140-440) K/mm3 Lymph % (Auto) (13.4-35.0) % Orange % (Auto) (0.0-7.3) % Eos % (Auto) (0.0-4.3) % Baso % (Auto) (0.0-1.8) % Lymph # (1.2-5.4) K/mm3 Orange # (0.0-0.8) K/mm3 Eos # (0.0-0.4) K/mm3 Baso # (0.0-0.1) K/mm3 Seg Neutrophils % (40.0-70.0) % Seg Neutrophils # (1.8-7.7) K/mm3 Sodium 139 (137-145) mmol/L Potassium 3.8 (3.6-5.0) mmol/L Chloride 100.6 (98-107) mmol/L Carbon Dioxide 28 (22-30) mmol/L Anion Gap 14 mmol/L BUN 15 (9-20) mg/dL Creatinine 0.6 L (0.8-1.5) mg/dL Estimated GFR > 60 ml/min BUN/Creatinine Ratio 25 % Glucose 80 (75-100) mg/dL Calcium 9.4 (8.4-10.2) mg/dL Urine Color (Yellow) Urine Turbidity (Clear) Urine pH (5.0-7.0) Ur Specific [place] (1.003-1.030) Urine Protein (Negative) mg/dL Urine Glucose (UA) (Negative) mg/dL Urine Ketones (Negative) mg/dL Urine Blood (Negative) Urine Nitrite (Negative) Urine Bilirubin (Negative) Urine Urobilinogen (<2.0) mg/dL Ur Leukocyte Esterase (Negative) Urine WBC (Auto) (0.0-6.0) /HPF Urine RBC (Auto) (0.0-6.0) /HPF Urine Bacteria (Auto) (Negative) /HPF Urine Mucus /HPF Salicylates (2.8-20.0) mg/dL Urine Opiates Screen Urine Methadone Screen Acetaminophen < 5.0 L (10.0-30.0) ug/mL Ur Barbiturates Screen Valproic Acid (50-100) ug/mL Ur Phencyclidine Scrn Ur Amphetamines Screen U Benzodiazepines Scrn Urine Cocaine Screen U Marijuana (THC) Screen Drugs of Abuse Note Plasma/Serum Alcohol < 0.01 (0-0.07) % 08/15/19 08/15/19 Range/Units 13:42 15:44 WBC 7.0 (4.5-11.0) K/mm3 RBC 4.67 (3.65-5.03) M/mm3 Hgb 14.9 (11.8-15.2) gm/dl Hct 43.7 (35.5-45.6) % MCV 94 (84-94) fl MCH 32 (28-32) pg MCHC 34 (32-34) % RDW 13.0 L (13.2-15.2) % Plt Count 215 (140-440) K/mm3 Lymph % (Auto) 43.5 H (13.4-35.0) % Orange % (Auto) 9.5 H (0.0-7.3) % Eos % (Auto) 1.4 (0.0-4.3) % Baso % (Auto) 0.4 (0.0-1.8) % Lymph # 3.0 (1.2-5.4) K/mm3 Orange # 0.7 (0.0-0.8) K/mm3 Eos # 0.1 (0.0-0.4) K/mm3 Baso # 0.0 (0.0-0.1) K/mm3 Seg Neutrophils % 45.2 (40.0-70.0) % Seg Neutrophils # 3.2 (1.8-7.7) K/mm3 Sodium (137-145) mmol/L Potassium (3.6-5.0) mmol/L Chloride (98-107) mmol/L Carbon Dioxide (22-30) mmol/L Anion Gap mmol/L BUN (9-20) mg/dL Creatinine (0.8-1.5) mg/dL Estimated GFR ml/min BUN/Creatinine Ratio % Glucose (75-100) mg/dL Calcium (8.4-10.2) mg/dL Urine Color (Yellow) Urine Turbidity (Clear) Urine pH (5.0-7.0) Ur Specific [place] (1.003-1.030) Urine Protein (Negative) mg/dL Urine Glucose (UA) (Negative) mg/dL Urine Ketones (Negative) mg/dL Urine Blood (Negative) Urine Nitrite (Negative) Urine Bilirubin (Negative) Urine Urobilinogen (<2.0) mg/dL Ur Leukocyte Esterase (Negative) Urine WBC (Auto) (0.0-6.0) /HPF Urine RBC (Auto) (0.0-6.0) /HPF Urine Bacteria (Auto) (Negative) /HPF Urine Mucus /HPF Salicylates (2.8-20.0) mg/dL Urine Opiates Screen Urine Methadone Screen Acetaminophen (10.0-30.0) ug/mL Ur Barbiturates Screen Valproic Acid 113.8 H (50-100) ug/mL Ur Phencyclidine Scrn Ur Amphetamines Screen U Benzodiazepines Scrn Urine Cocaine Screen U Marijuana (THC) Screen Drugs of Abuse Note Plasma/Serum Alcohol (0-0.07) % - Radiology Data Radiology results: report reviewed - Medical Decision Making Results discussed with patient Critical care attestation.: If time is entered above; I have spent that time in minutes in the direct care of this critically ill patient, excluding procedure time. ED Disposition Clinical Impression: Seizure, Head injury Disposition: DC-01 TO HOME OR SELFCARE Is pt being admited?: No Does the pt Need Aspirin: No Condition: Stable Instructions: Recurrent Seizures Adult (ED), Minor Head Injury (ED) Additional Instructions: return if worse Referrals: PRIMARY CARE,MD [Primary Care Provider] - 3-5 Days [facility] [Provider Group] - 3-5 Days [facility] [Provider Group] - 3-5 Days Time of Disposition: 16:58
--- NOTE | 2019-08-15 16:03 | Cat Scan Report ---
CT BRAIN: 08/15/2019 INDICATION / CLINICAL INFORMATION: head trauma s/p seizure. COMPARISON: None available. FINDINGS: BRAIN/INTRACRANIAL STRUCTURES: Unenhanced CT images of the brain demonstrate no evidence of acute abn ormality. Ventricles and sulci are slightly prominent in size for a patient of this age, consistent w ith mild cerebral atrophy. There is no evidence of acute ischemic injury, hemorrhage, or mass. There are no abnormal extra-axial fluid collections. There is been no change when compared to the prior exam. EXTRACRANIAL STRUCTURES: Unremarkable. IMPRESSION: No acute abnormality. All CT scans at this location are performed using dose reduction to ALARA by means of automated expos ure control. Signer Name: Amadou Noel MD Signed: 08/15/2019 3:58 PM Workstation Name: [id number]
[2019-08-15 17:42] VITALS: BP 130/76
== END 2019-08-15 17:11 | disposition home or self-care (01) ==
LOC: ED 12:59
DX: S09.90XA Unspecified injury of head, initial encounter (principal); R56.9 Unspecified convulsions; I10 Essential (primary) hypertension; F17.200 Nicotine dependence, unspecified, uncomplicated; Z79.899 Other long term (current) drug therapy; W22.8XXA Striking against or struck by other objects, initial encounter; Y93.89 Activity, other specified; Y92.89 Other specified places as the place of occurrence of the external cause; Y99.8 Other external cause status
CPT/HCPCS: 36415; 70450; 80048; 80164; 80307; 80320; 81001; 85025; G0480

== ENCOUNTER 2020-01-28 22:37 | Emergency (ER) | payer SELFPAY ==
[2020-01-28 22:43] VITALS: BP 147/75
--- NOTE | 2020-01-29 02:07 | Emergency Department Report ---
ED Recheck HPI - General Chief Complaint: Medical Clearance Stated Complaint: MEDS FOR SEIZURES Time Seen by Provider: 01/29/20 01:50 Source: patient Mode of arrival: Ambulatory Limitations: No Limitations - History of Present Illness Initial Comments: Patient is a 39-year-old male presents emergency room with a history of epilepsy and states that he needs a refill of his medication. He states he has not yet missed any doses but only has a couple of days left. He states that he takes valproic acid 500 mg 3 times daily. He denies any recent seizure. He does not report any chest pain, shortness of breath, vision changes, numbness, weakness, nausea, vomiting, diarrhea, fever. He denies any other past medical history. He denies any allergies to medications. - Related Data Previous Rx's Medication Instructions Recorded Last Taken Type Valproic Acid 500 mg PO TID #180 capsule 03/29/17 08/14/19 Rx amLODIPine [Norvasc] 10 mg PO DAILY #30 tab 05/27/17 08/15/19 Rx Divalproex [Kelby Perez] 500 mg PO TID #90 tab 01/29/20 Unknown Rx Allergies Allergy/AdvReac Type Severity Reaction Status Date / Time No Known Allergies Allergy Verified 08/15/19 13:28 ED Review of Systems ROS: Stated complaint: MEDS FOR SEIZURES Other details as noted in HPI Comment: All other systems reviewed and negative ED Past Medical Hx - Past Medical History Previous Medical History?: Yes Hx Hypertension: Yes Hx Seizures: Yes Additional medical history: SPINAL MENINGITIS (CHILD) - Surgical History Additional Surgical History: Toe surgery 1994 - Social History Smoking Status: Never Smoker Substance Use Type: None - Medications Home Medications: Home Medications Medication Instructions Recorded Confirmed Last Taken Type Valproic Acid 500 mg PO TID #180 capsule 03/29/17 08/15/19 08/14/19 Rx amLODIPine [Norvasc] 10 mg PO DAILY #30 tab 05/27/17 08/15/19 08/15/19 Rx Divalproex [Kelby Perez] 500 mg PO TID #90 tab 01/29/20 Unknown Rx ED Physical Exam - General Limitations: No Limitations General appearance: alert, in no apparent distress - Head Head exam: Present: atraumatic, normocephalic - Eye Eye exam: Present: normal appearance - ENT ENT exam: Present: mucous membranes moist - Respiratory Respiratory exam: Present: normal lung sounds bilaterally. Absent: respiratory distress, wheezes, rales, rhonchi, stridor, chest wall tenderness, accessory muscle use, decreased breath sounds, prolonged expiratory - Cardiovascular Cardiovascular Exam: Present: regular rate, normal rhythm, normal heart sounds. Absent: systolic murmur, diastolic murmur, rubs, gallop - Neurological Exam Neurological exam: Present: alert, oriented X3 - Psychiatric Psychiatric exam: Present: normal affect, normal mood - Skin Skin exam: Present: warm, dry, intact ED Course Vital Signs 01/28/20 22:38 Temperature 97.6 F Pulse Rate 77 Respiratory 18 Rate Blood Pressure 147/75 O2 Sat by Pulse 97 Oximetry ED Recheck MDM - Medical Decision Making Patient is a 39-year-old male presents emergency room with a history of epilepsy and states that he needs a refill of his medication. He states he has not yet missed any doses but only has a couple of days left. He states that he takes valproic acid 500 mg 3 times daily. He denies any recent seizure. He does not report any chest pain, shortness of breath, vision changes, numbness, weakness, nausea, vomiting, diarrhea, fever. He denies any other past medical history. He denies any allergies to medications. Vitals are stable. No abnormality on physical examination as documented in chart. Patient's seizure medication refilled. advised pt Please take medication as prescribed. Please follow-up with a primary care doctor. Your chronic condition needs to be managed by a primary care doctor. Your medication levels and laboratory tests should be monitored by primary care doctor. Return to the emergency room for any new or worsening symptoms. Critical care attestation.: If time is entered above; I have spent that time in minutes in the direct care of this critically ill patient, excluding procedure time. ED Disposition Clinical Impression: Medication refill, Seizure disorder Disposition: [id number] TO HOME OR SELFCARE Is pt being admited?: No Does the pt Need Aspirin: No Condition: Stable Instructions: Recurrent Seizures Adult (ED) Additional Instructions: Please take medication as prescribed. Please follow-up with a primary care doctor. Your chronic condition needs to be managed by a primary care doctor. Your medication levels and laboratory tests should be monitored by primary care doctor. Return to the emergency room for any new or worsening symptoms. Prescriptions: Divalproex Dr [Kelby Perez] 500 mg PO TID #90 tab Referrals: AMY LIU MD [Staff Physician] - 3-5 Days [facility] [Outside] - 3-5 Days Forms: Work/School Release Form(ED) Time of Disposition: 02:05 Print Language: SWEDISH
== END 2020-01-29 02:12 | disposition home or self-care (01) ==
LOC: ED 22:37
DX: G40.909 Epilepsy, unspecified, not intractable, without status epilepticus (principal); I10 Essential (primary) hypertension; Z79.899 Other long term (current) drug therapy; Z76.0 Encounter for issue of repeat prescription
CPT/HCPCS: 99282

== ENCOUNTER 2020-02-26 15:52 | Emergency (ER) | payer SELFPAY ==
[2020-02-26 15:59] VITALS: BP 175/101
--- NOTE | 2020-02-26 15:59 | Event Note ---
ED Screening Note Date of service: 02/26/20 Time: 15:58 ED Screening Note: 39 y/o male comes in thinks he had a sz last wednesday and wants his levels check. This initial assessment/diagnostic orders/clinical plan/treatment(s) is/are subject to change based on patients health status, clinical progression and re- assessment by fellow clinical providers in the ED. Further treatment and workup at subsequent clinical providers discretion. Patient/guardian urged not to elope from the ED as their condition may be serious if not clinically assessed and managed. Initial orders include:
--- NOTE | 2020-02-26 18:03 | Emergency Department Report ---
Chief Complaint: Medical Clearance Stated Complaint: MEDICATION - HPI History of Present Illness: 39 y/o male comes in thinks he had a sz last wednesday and wants his levels check. - Exam Vital Signs: Vital Signs 02/26/20 15:56 Temperature 97.7 F Pulse Rate 89 Respiratory 18 Rate Blood Pressure 175/101 O2 Sat by Pulse 99 Oximetry MSE screening note: Focused history and physical exam performed. Due to findings the following was ordered: 39 y/o male comes in thinks he had a sz last wednesday and wants his levels check. Levels are normal 77.0 ED Disposition for MSE Clinical Impression: Seizure disorder Disposition: Z- MED SCREENING EXAM-LEFT Is pt being admited?: No Does the pt Need Aspirin: No Condition: Stable Additional Instructions: Depakote levels are normal follow up with your neurology. Referrals: RICHARD DICK MD [Referring] - 3-5 Days PRIMARY CARE, [Primary Care Provider] - 3-5 Days Forms: Work/School Release Form(ED)
== END 2020-02-26 18:20 | disposition left against medical advice (07) ==
LOC: ED 15:52
DX: G40.909 Epilepsy, unspecified, not intractable, without status epilepticus (principal); Z76.0 Encounter for issue of repeat prescription
CPT/HCPCS: 36415; 80164; 99282